=== PATIENT | male | born 1940 | race Caucasian/White ===

== ENCOUNTER → 2022-07-06 12:23 | Outpatient (BNVA) | payer MEDICARE, SELFPAY | PROVIDERS: Family Provider Internal Medicine Cardiovascular Disease; Visit Provider Nurse Practitioner Family | DX: R63.4 Abnormal weight loss (principal); J22 Unspecified acute lower respiratory infection; B96.89 Other specified bacterial agents as the cause of diseases classified elsewhere | CPT/HCPCS: 80053; 85025 ==

== ENCOUNTER → 2024-04-28 14:38 | Outpatient (BNVA) | payer MEDICARE, SELFPAY | PROVIDERS: Family Provider Internal Medicine Cardiovascular Disease; Visit Provider Emergency Medicine | DX: R34 Anuria and oliguria (principal); R33.8 Other retention of urine | CPT/HCPCS: 81000; 87077; 87086; 87184 ==